=== PATIENT | female | born 1950 | race Caucasian/White ===

== ENCOUNTER → 2018-01-03 | Outpatient (CLI) | payer MEDICARE ==
[~2018-01-03] MED LIST: CEFD300; DIAZ5 PO; FAMO20 PO; HYDHOMSY; MELA3 PO; METO10 PO; PROC25S PR; RANI150 PO; RXPROM25S PR; THYR60
== END | disposition home or self-care (01) ==
LOC: LAB SHORT 17:15 → LAB 17:15
PROVIDERS: Hospitalist
DX: Z12.4 Encounter for screening for malignant neoplasm of cervix (principal)
CPT/HCPCS: G0145

== ENCOUNTER → 2018-01-04 | Outpatient (CLI) | payer MEDICARE ==
[2018-01-10 21:09] LABS: CHLAMYDIA TRACHOMATIS, NAA Negative (Negative); NEISSERIA GONORRHOEAE, NAA Negative (Negative)
== END | disposition home or self-care (01) ==
LOC: LAB SHORT 11:30 → LAB 11:30
PROVIDERS: Hospitalist
DX: Z11.3 Encounter for screening for infections with a predominantly sexual mode of transmission (principal); N89.8 Other specified noninflammatory disorders of vagina
CPT/HCPCS: 87491; 87591

== ENCOUNTER → 2018-10-14 | Outpatient (CLI) | payer MEDICARE ==
[2018-10-14 18:00] LABS: Free Thyroxine 0.77 ng/dL (0.70-1.60)
[2018-10-14 18:05] LABS: Thyroid Stimulating Hormone 0.91 uIU/mL (0.360-4.800); Triiodothyronine, Free 4.74 pg/mL (2.18-3.98)
== END | disposition home or self-care (01) ==
LOC: LAB EV 17:32 → LAB SHORT 17:32
PROVIDERS: Hospitalist
DX: E03.9 Hypothyroidism, unspecified (principal)
CPT/HCPCS: 84439; 84443; 84481

== ENCOUNTER → 2019-01-22 | Outpatient (CLI) | payer MEDICARE ==
[2019-01-22 20:27] LABS: Free Thyroxine 1.31 ng/dL (0.70-1.60)
[2019-01-22 20:29] LABS: Thyroid Stimulating Hormone 1.72 uIU/mL (0.360-4.800); Triiodothyronine, Free 2.71 pg/mL (2.18-3.98)
== END | disposition home or self-care (01) ==
LOC: LAB SHORT 19:16 → LAB 19:16
PROVIDERS: Hospitalist
DX: E03.9 Hypothyroidism, unspecified (principal)
CPT/HCPCS: 84439; 84443; 84481

== ENCOUNTER → 2020-01-19 | Outpatient (CLI) | payer MEDICARE ==
[2020-01-19 15:52] LABS: Free Thyroxine 1.38 ng/dL (0.70-1.60)
[2020-01-19 15:54] LABS: Thyroid Stimulating Hormone 3.28 uIU/mL (0.360-4.800)
== END | disposition home or self-care (01) ==
LOC: LAB 13:40 → LAB SHORT 13:40
PROVIDERS: Hospitalist
DX: E03.9 Hypothyroidism, unspecified (principal)
CPT/HCPCS: 84439; 84443

== ENCOUNTER → 2021-01-18 | Outpatient (CLI) | payer MEDICARE ==
[2021-01-18 15:24] LABS: Alanine Aminotransfer (ALT/SGP 20 U/L (12-78); Albumin, Blood 3.6 g/dL (3.4-5.0); Albumin/Globulin Ratio 0.9 (0.8-1.8); Alk Phos 71 U/L (50-136); Anion Gap 5 mmol/L (6-16); Aspartate Aminotrans (AST/SGOT 14 U/L (12-37); Bilirubin, Total 0.5 mg/dL (0.1-1.0); Blood Urea Nitrogen 13 mg/dL (8-24); CHOL/HDL RATIO 4.2; CO2, Blood 28 mmol/L (21-32); Calcium, Blood 9.4 mg/dL (8.5-10.1); Chloride, Blood 105 mmol/L (98-108); Cholesterol 255 mg/dL (50-200); Creatinine, Blood 0.93 mg/dL (0.40-1.00); Free Thyroxine 1.45 ng/dL (0.70-1.60); Globulin, Blood 3.9 g/dL (2.2-4.0); Glomerular Filtration Rate 60 (60-); Glucose, Blood 86 mg/dL (70-99); HDL Cholesterol 61 mg/dL (>39); LDL/HDL RATIO 2.9; Low Density Lipoprotein Chol 176 mg/dL (0-110); Potassium, Blood 4.2 mmol/L (3.5-5.5); Sodium, Blood 138 mmol/L (136-145); Thyroid Stimulating Hormone 0.945 uIU/mL (0.360-4.800); Total Protein, Blood 7.5 g/dL (6.4-8.2); Triglycerides 88 mg/dL (30-160); Very Low Density Lipoprot Chol 17 mg/dL (6-32)
== END | disposition home or self-care (01) ==
LOC: LAB 09:10 → LAB SHORT 09:10
PROVIDERS: Hospitalist
DX: E03.9 Hypothyroidism, unspecified (principal)
CPT/HCPCS: 80053; 80061; 84439; 84443

== ENCOUNTER → 2023-01-15 | Outpatient (CLI) | payer MEDICARE ==
[2023-01-15 15:50] LABS: BASOPHILS ABSOLUTE AUTO 0.06 K/mm3 (0.00-0.23); BASOPHILS PERCENT AUTO 1 % (0-2); EOSINOPHILS ABSOLUTE AUTO 0.07 K/mm3 (0.00-0.68); EOSINOPHILS PERCENT AUTO 1 % (0-6); IMMATURE GRAN ABSOLUTE AUTO 0.01 K/mm3 (0.00-0.10); IMMATURE GRAN PERCENT AUTO 0 % (0-1); LYMPHOCYTES ABSOLUTE AUTO 2.36 K/mm3 (0.84-5.20); LYMPHOCYTES PERCENT AUTO 42 % (21-46); MONOCYTES ABSOLUTE AUTO 0.29 K/mm3 (0.16-1.47); MONOCYTES PERCENT AUTO 5 % (4-13); Mean Corpuscular HGB 30.7 pg (26.0-34.0); Mean Corpuscular HGB Conc 34.1 g/dL (31.5-36.5); Mean Corpuscular Volume 90 fL (80-100); Mean Platelet Volume 9.5 fL (9.1-12.4); NEUTROPHILS ABSOLUTE AUTO 2.87 K/mm3 (1.96-9.15); NEUTROPHILS PERCENT AUTO 51 % (41-73); Platelet Count 318 K/mm3 (150-400); RDW Coefficient Variation 11.9 % (11.7-14.2); RDW Standard Deviation 39.4 fL (35.1-46.3); Red Blood Cell Count 4.88 M/mm3 (3.80-5.20); White Blood Cell Count 5.66 K/mm3 (4.00-11.30)
[2023-01-15 16:04] LABS: Alanine Aminotransfer (ALT/SGP 18 U/L (12-78); Albumin, Blood 4.1 g/dL (3.4-5.0); Albumin/Globulin Ratio 1.2 (0.8-1.8); Alk Phos 72 U/L (50-136); Anion Gap 4 mmol/L (6-16); Aspartate Aminotrans (AST/SGOT 9 U/L (12-37); Bilirubin, Total 0.7 mg/dL (0.1-1.0); Blood Urea Nitrogen 12 mg/dL (8-24); Bun/Creatinine Ratio 12.7 (12.0-20.0); CO2, Blood 28 mmol/L (21-32); Calcium, Blood 9.6 mg/dL (8.5-10.1); Chloride, Blood 108 mmol/L (98-108); Cholesterol 246 mg/dL (50-200); Creatinine, Blood 0.94 mg/dL (0.40-1.00); Free Thyroxine 1.54 ng/dL (0.70-1.60); Globulin, Blood 3.4 g/dL (2.2-4.0); Glomerular Filtration Rate 64 (60-); Glucose, Blood 102 mg/dL (70-99); HDL Cholesterol 62 mg/dL (>39); LDL/HDL RATIO 2.6; Low Density Lipoprotein Chol 162 mg/dL (0-110); Potassium, Blood 4.4 mmol/L (3.5-5.5); Sodium, Blood 140 mmol/L (136-145); Thyroid Stimulating Hormone 0.643 uIU/mL (0.360-4.800); Total Protein, Blood 7.5 g/dL (6.4-8.2); Triglycerides 108 mg/dL (30-160); Very Low Density Lipoprot Chol 21 mg/dL (6-32)
== END | disposition home or self-care (01) ==
LOC: LAB SHORT 10:40 → LAB 10:40
PROVIDERS: Hospitalist
DX: E03.9 Hypothyroidism, unspecified (principal); E78.00 Pure hypercholesterolemia, unspecified; R06.02 Shortness of breath
CPT/HCPCS: 80053; 80061; 84439; 84443; 85025

== ENCOUNTER → 2023-10-09 | Outpatient (CLI) | payer MEDICARE ==
[2023-10-09 18:55] LABS: BASOPHILS ABSOLUTE AUTO 0.06 K/mm3 (0.00-0.23); BASOPHILS PERCENT AUTO 1 % (0-2); EOSINOPHILS ABSOLUTE AUTO 0.08 K/mm3 (0.00-0.68); EOSINOPHILS PERCENT AUTO 2 % (0-6); Hematocrit 42.2 % (33.0-51.0); Hemoglobin 13.9 g/dL (11.5-16.0); IMMATURE GRAN ABSOLUTE AUTO 0.01 K/mm3 (0.00-0.10); IMMATURE GRAN PERCENT AUTO 0 % (0-1); LYMPHOCYTES ABSOLUTE AUTO 2.61 K/mm3 (0.84-5.20); LYMPHOCYTES PERCENT AUTO 50 % (21-46); MONOCYTES ABSOLUTE AUTO 0.31 K/mm3 (0.16-1.47); MONOCYTES PERCENT AUTO 6 % (4-13); Mean Corpuscular HGB 30.5 pg (26.0-34.0); Mean Corpuscular HGB Conc 32.9 g/dL (31.5-36.5); Mean Corpuscular Volume 93 fL (80-100); Mean Platelet Volume 9.7 fL (9.1-12.4); NEUTROPHILS ABSOLUTE AUTO 2.13 K/mm3 (1.96-9.15); NEUTROPHILS PERCENT AUTO 41 % (41-73); Platelet Count 304 K/mm3 (150-400); RDW Coefficient Variation 11.9 % (11.7-14.2); RDW Standard Deviation 40.2 fL (35.1-46.3); Red Blood Cell Count 4.55 M/mm3 (3.80-5.20)
[2023-10-09 19:44] LABS: Alanine Aminotransfer (ALT/SGP 25 U/L (12-78); Albumin, Blood 4.1 g/dL (3.4-5.0); Albumin/Globulin Ratio 1.2 (0.8-1.8); Alk Phos 64 U/L (50-136); Anion Gap 9 mmol/L (3-11); Aspartate Aminotrans (AST/SGOT 12 U/L (12-37); Bilirubin, Total 1.1 mg/dL (0.1-1.0); Blood Urea Nitrogen 15 mg/dL (8-24); Bun/Creatinine Ratio 13.4 (12.0-20.0); CHOL/HDL RATIO 2.6; CO2, Blood 29 mmol/L (21-32); Calcium, Blood 9.1 mg/dL (8.5-10.1); Chloride, Blood 104 mmol/L (98-108); Cholesterol 176 mg/dL (50-200); Creatinine, Blood 1.12 mg/dL (0.40-1.00); Globulin, Blood 3.3 g/dL (2.2-4.0); Glomerular Filtration Rate 52 (60-); Glucose, Blood 94 mg/dL (70-99); HDL Cholesterol 68 mg/dL (>39); LDL/HDL RATIO 1.4; Low Density Lipoprotein Chol 95 mg/dL (0-110); Potassium, Blood 4.2 mmol/L (3.5-5.5); Sodium, Blood 138 mmol/L (136-145); Total Protein, Blood 7.4 g/dL (6.4-8.2); Triglycerides 66 mg/dL (30-160); Very Low Density Lipoprot Chol 13 mg/dL (6-32)
== END | disposition home or self-care (01) ==
LOC: LAB SHORT 17:28 → LAB 17:28
PROVIDERS: Hospitalist
DX: E78.00 Pure hypercholesterolemia, unspecified (principal); E03.9 Hypothyroidism, unspecified
CPT/HCPCS: 80053; 80061; 84439; 84443; 85025

== ENCOUNTER → 2024-11-17 | Outpatient (CLI) | payer MEDICARE ==
[~2024-11-17] MED LIST changes: +ACET325 PO; +ANORO ELLIPTA1 EAC1 INH; +LEVSOD75 PO; +Mucus Relief400 MG PO; +ONDA4ODT MM
[2024-11-17 19:15] LABS: BASOPHILS ABSOLUTE AUTO 0.04 K/mm3 (0.00-0.23); BASOPHILS PERCENT AUTO 0 % (0-2); EOSINOPHILS ABSOLUTE AUTO 0.00 K/mm3 (0.00-0.68); EOSINOPHILS PERCENT AUTO 0 % (0-6); Hematocrit 37.3 % (33.0-51.0); Hemoglobin 12.7 g/dL (11.5-16.0); IMMATURE GRAN ABSOLUTE AUTO 0.30 K/mm3 (0.00-0.10); IMMATURE GRAN PERCENT AUTO 3 % (0-1); LYMPHOCYTES ABSOLUTE AUTO 0.67 K/mm3 (0.84-5.20); LYMPHOCYTES PERCENT AUTO 7 % (21-46); MONOCYTES ABSOLUTE AUTO 0.18 K/mm3 (0.16-1.47); MONOCYTES PERCENT AUTO 2 % (4-13); Mean Corpuscular HGB Conc 34.0 g/dL (31.5-36.5); Mean Corpuscular Volume 91 fL (80-100); NEUTROPHILS ABSOLUTE AUTO 8.94 K/mm3 (1.96-9.15); NEUTROPHILS PERCENT AUTO 88 % (41-73); NRBC ABSOLUTE 0.00 K/mm3 (0.00-0.02); NRBC Auto 0.0 /100 WBC (0.0-0.2); Platelet Count 563 K/mm3 (150-400); RDW Coefficient Variation 12.0 % (11.7-14.2); RDW Standard Deviation 39.6 fL (35.1-46.3)
[2024-11-17 19:32] LABS: Alanine Aminotransfer (ALT/SGP 25.0 U/L (12-78); Albumin, Blood 3.1 g/dL (3.4-5.0); Albumin/Globulin Ratio 0.9 (0.8-1.8); Anion Gap 11.0 mmol/L (3-11); Aspartate Aminotrans (AST/SGOT 15.0 U/L (12-37); Bilirubin, Total 0.9 mg/dL (0.1-1.0); Blood Urea Nitrogen 18.0 mg/dL (8-24); CO2, Blood 26.0 mmol/L (21-32); Calcium, Blood 9.3 mg/dL (8.5-10.1); Chloride, Blood 99.0 mmol/L (98-108); Creatinine, Blood 1.0 mg/dL (0.40-1.00); Globulin, Blood 3.5 g/dL (2.2-4.0); Glucose, Blood 230.0 mg/dL (70-99); Potassium, Blood 4.4 mmol/L (3.5-5.5); Sodium, Blood 132.0 mmol/L (136-145); Total Protein, Blood 6.6 g/dL (6.4-8.2)
== END ==
LOC: LAB 18:17 → LAB SHORT 18:17
PROVIDERS: Hospitalist
DX: J18.9 Pneumonia, unspecified organism (principal); R73.9 Hyperglycemia, unspecified
CPT/HCPCS: 80053; 83036; 85025

== ENCOUNTER 2024-11-19 14:17 | Inpatient (IN) | payer MEDICARE ==
[~2024-11-19] VITALS: Ht 162.6 cm; Wt 56.7 kg
[~2024-11-19 14:17] MED LIST changes: -ACET325 PO; -ANORO ELLIPTA1 EAC1 INH; -LEVSOD75 PO; -Mucus Relief400 MG PO; -ONDA4ODT MM
[2024-11-19 15:00] LABS: BASOPHILS ABSOLUTE AUTO 0.04 K/mm3 (0.00-0.23); BASOPHILS PERCENT AUTO 1 % (0-2); EOSINOPHILS ABSOLUTE AUTO 0.00 K/mm3 (0.00-0.68); EOSINOPHILS PERCENT AUTO 0 % (0-6); Hematocrit 38.5 % (33.0-51.0); Hemoglobin 13.2 g/dL (11.5-16.0); IMMATURE GRAN ABSOLUTE AUTO 0.28 K/mm3 (0.00-0.10); IMMATURE GRAN PERCENT AUTO 3 % (0-1); LYMPHOCYTES ABSOLUTE AUTO 0.92 K/mm3 (0.84-5.20); LYMPHOCYTES PERCENT AUTO 11 % (21-46); MONOCYTES ABSOLUTE AUTO 0.15 K/mm3 (0.16-1.47); MONOCYTES PERCENT AUTO 2 % (4-13); Mean Corpuscular HGB Conc 34.3 g/dL (31.5-36.5); Mean Corpuscular Volume 89 fL (80-100); NEUTROPHILS ABSOLUTE AUTO 7.17 K/mm3 (1.96-9.15); NEUTROPHILS PERCENT AUTO 84 % (41-73); NRBC ABSOLUTE 0.00 K/mm3 (0.00-0.02); NRBC Auto 0.0 /100 WBC (0.0-0.2); Platelet Count 567 K/mm3 (150-400); RDW Coefficient Variation 12.0 % (11.7-14.2); RDW Standard Deviation 39.4 fL (35.1-46.3)
[2024-11-19 15:39] LABS: Magnesium, Blood 2.6 mg/dL (1.6-2.4)
[2024-11-19 15:40] LABS: Alanine Aminotransfer (ALT/SGP 24.0 U/L (12-78); Albumin, Blood 3.2 g/dL (3.4-5.0); Albumin/Globulin Ratio 0.8 (0.8-1.8); Anion Gap 6.0 mmol/L (3-11); Aspartate Aminotrans (AST/SGOT 16.0 U/L (12-37); Bilirubin, Total 1.0 mg/dL (0.1-1.0); Blood Urea Nitrogen 13.0 mg/dL (8-24); CO2, Blood 24.0 mmol/L (21-32); Calcium, Blood 9.1 mg/dL (8.5-10.1); Chloride, Blood 102.0 mmol/L (98-108); Creatinine, Blood 0.93 mg/dL (0.40-1.00); Globulin, Blood 4.1 g/dL (2.2-4.0); Glucose, Blood 171.0 mg/dL (70-99); Potassium, Blood 3.9 mmol/L (3.5-5.5); Sodium, Blood 128.0 mmol/L (136-145); Total Protein, Blood 7.3 g/dL (6.4-8.2)
[2024-11-19] MEDS ORDERED: NS 1,000 ML IV SCH ×2 (15:45→18:25)
[2024-11-19 16:44] LABS: Thyroid Stimulating Hormone 1.19 uIU/mL (0.360-4.800)
[2024-11-19 16:51] LABS: Source, Urine Clean Catch
[2024-11-19 17:00] LABS: Bilirubin, Urine Neg (Neg); Glucose Qualitative, Urine Neg (Neg); Ketones, Urine Neg (Neg); Leukocyte Esterase, Urine Neg (Neg); Protein, Urine Neg (Neg); Specific Gravity, Urine 1.005 (1.003-1.022); Urobilinogen, Urine NORM (Normal)
[2024-11-19 17:05] LABS: Color, Urine Pale Yellow (P-Yellow)
[2024-11-19 17:16] LABS: U Amphetamine Screen Not Detected; U Barbituate Screen Not Detected; U Benzodiazapine Screen Not Detected; U Buprenorphine Screen Not Detected; U Cannabinoids Screen Not Detected; U Cocaine Screen Not Detected; U Methadone Screen Not Detected; U Methamphetamine Screen Not Detected; U Opiates Screen Not Detected; U Oxycodone Screen Not Detected; U Phencyclidine Screen Not Detected
[2024-11-19] MEDS ORDERED: LORazepam 2 MG/ML 1ML Injection IV ONE (17:20)
[2024-11-19] MEDS ORDERED: Diazepam 5 MG / ML 2ML SYR IV ONE (17:25)
[2024-11-19] MEDS ORDERED: Ondansetron HCl 2 MG / ML 2ML Vial IV PRN (18:25)
[2024-11-19] MEDS ORDERED: Diazepam 5 MG / ML 2ML SYR IV PRN (18:50)
[2024-11-19] MEDS ORDERED: Ipratropium/Albuterol SulF 2.5-0.5MG/3 ML Amp INH SCH (19:00)
[2024-11-19] MEDS ORDERED: Metoclopramide HCl 5MG / ML 2ML Vial IV ONE (20:00)
[2024-11-19 20:37] LABS: Anion Gap 5.0 mmol/L (3-11); Blood Urea Nitrogen 10.0 mg/dL (8-24); CO2, Blood 26.0 mmol/L (21-32); Calcium, Blood 8.4 mg/dL (8.5-10.1); Chloride, Blood 109.0 mmol/L (98-108); Creatinine, Blood 0.79 mg/dL (0.40-1.00); Glucose, Blood 160.0 mg/dL (70-99); Potassium, Blood 4.3 mmol/L (3.5-5.5); Sodium, Blood 136.0 mmol/L (136-145)
[2024-11-19 22:29] VITALS: BP 145/84
[2024-11-19] MEDS ORDERED: ANORO ELLIPTA1 EAC1 INH ×2 (22:54)
[2024-11-19] MEDS ORDERED: LEVSOD75 PO ×2 (22:55)
[2024-11-19] MEDS ORDERED: ONDA4ODT MM ×2 (22:56)
[2024-11-20 04:24] VITALS: BP 136/77
[2024-11-20 04:57] VITALS: BP 165/88
[2024-11-20 05:52] LABS: Anion Gap 9.0 mmol/L (3-11); Blood Urea Nitrogen 12.0 mg/dL (8-24); CO2, Blood 26.0 mmol/L (21-32); Calcium, Blood 8.1 mg/dL (8.5-10.1); Chloride, Blood 107.0 mmol/L (98-108); Creatinine, Blood 0.8 mg/dL (0.40-1.00); Glucose, Blood 82.0 mg/dL (70-99); Potassium, Blood 4.0 mmol/L (3.5-5.5); Sodium, Blood 138.0 mmol/L (136-145)
[2024-11-20 06:00] VITALS: BP 165/84
[2024-11-20] MEDS ORDERED: Insulin Regular 100 UNIT/ML 10ML Vial SC SCH (07:30)
[2024-11-20 07:48] VITALS: BP 156/85
--- NOTE | 2024-11-20 07:54 | NUR ---
SHIFT SUMMARY A&OX2-3. INTERMITTENT CONFUSION. SOME DELUSIONS THROUGHOUT SHIFT BUT PT ABLE TO BE REDIRECTED. PT DID BECOME VERY ANXIOUS DURING THE NIGHT AND VALIUM WAS GIVEN PER EMAR. PT ALSO ENDED UP WITH A HEADACHE AND NEW ORDERS RECEIVED FOR TYLENOL. TYLENOL GIVEN BUT SWALLOWING WAS VERY DIFFICULT FOR PT. DUE TO CONFUSION IT WAS DIFFICULT FOR PT TO USE CALL LIGHT APPROPRIATELY. BED ALARM PRESENT. PT LUNGS SOUNDED COARSE, DIMINISHED AND WITH EXPIRATORY WHEEZES. CURRENTLY ON RA AND DENIES ANY SOB AT REST BUT DOES GET SOB WITH EXCERTION. PT CURRENTLY RESTING IN HOSPITAL BED IN LOWEST POSITION WITH RAILS X2 AND CALL LIGHT WITHIN REACH.
[2024-11-20] MEDS ORDERED: Enoxaparin 40 MG/0.4 ML SYR SC SCH (09:00)
[2024-11-20 13:44] LABS: Anion Gap 7.0 mmol/L (3-11); Blood Urea Nitrogen 11.0 mg/dL (8-24); CO2, Blood 28.0 mmol/L (21-32); Calcium, Blood 8.9 mg/dL (8.5-10.1); Chloride, Blood 104.0 mmol/L (98-108); Creatinine, Blood 0.8 mg/dL (0.40-1.00); Glucose, Blood 136.0 mg/dL (70-99); Potassium, Blood 3.5 mmol/L (3.5-5.5); Sodium, Blood 135.0 mmol/L (136-145)
[2024-11-20] MEDS ORDERED: Albuterol 2.5 MG/3 ML VIAL INH PRN (16:30)
--- NOTE | 2024-11-20 18:07 | NUR ---
SHIFT SUMMARY: PATIENT A+O X3 WITH MENTATION FLUCTUATION. VALIUM NOTED TO HAVE GREAT AFFECT ON PATIENTS MENTATION AND TREMORS. PATIENTS FAMILY AT BEDSIDE. MRI SCHEDULED PER DR. GARCIA. PAPERWORK FILLED OUT AND FAXED TO MRI. AWAITING RESULTS. PATIENT REMAINS SBA c FWW AND GB TO BSC. LUNGS DIMINISHED AND COARSE WITH CRACKLES IN BASES. S1 S2 HEARD UPON ASCULTATION. CONTINUOUS NS RUNNING AT 100ML/HR, IV PATENT. PLAN OF CARE ONGOING AT THIS TIME. WILL CONTINUE TO MONITOR.
[2024-11-20 19:26] VITALS: BP 162/92
[2024-11-21 02:29] VITALS: BP 130/72
[2024-11-21 04:44] LABS: Hematocrit 35.6 % (33.0-51.0); Hemoglobin 11.7 g/dL (11.5-16.0); Mean Corpuscular HGB Conc 32.9 g/dL (31.5-36.5); Mean Corpuscular Volume 92 fL (80-100); NRBC ABSOLUTE 0.00 K/mm3 (0.00-0.02); NRBC Auto 0.0 /100 WBC (0.0-0.2); Platelet Count 433 K/mm3 (150-400); RDW Coefficient Variation 12.3 % (11.7-14.2); RDW Standard Deviation 40.4 fL (35.1-46.3)
[2024-11-21 05:14] LABS: Alanine Aminotransfer (ALT/SGP 17.0 U/L (12-78); Albumin, Blood 2.2 g/dL (3.4-5.0); Albumin/Globulin Ratio 0.6 (0.8-1.8); Anion Gap 6.0 mmol/L (3-11); Aspartate Aminotrans (AST/SGOT 11.0 U/L (12-37); Bilirubin, Total 0.7 mg/dL (0.1-1.0); Blood Urea Nitrogen 8.0 mg/dL (8-24); CO2, Blood 27.0 mmol/L (21-32); Calcium, Blood 8.3 mg/dL (8.5-10.1); Chloride, Blood 111.0 mmol/L (98-108); Creatinine, Blood 0.93 mg/dL (0.40-1.00); Globulin, Blood 3.4 g/dL (2.2-4.0); Glucose, Blood 82.0 mg/dL (70-99); Potassium, Blood 4.3 mmol/L (3.5-5.5); Sodium, Blood 140.0 mmol/L (136-145); Total Protein, Blood 5.6 g/dL (6.4-8.2)
[2024-11-21 05:24] LABS: BASOPHILS ABSOLUTE MAN 0.00 K/mm3 (0.00-0.23); BASOPHILS PERCENT MAN 0 % (0-2); EOSINOPHILS ABSOLUTE MAN 0.00 K/mm3 (0.00-0.68); EOSINOPHILS PERCENT MAN 0 % (0-6); LYMPHOCYTES % ATYPICAL MANUAL 1 % (0-0); LYMPHOCYTES ABSOLUTE MAN 1.93 K/mm3 (0.84-5.20); LYMPHOCYTES PERCENT MAN 40 % (21-46); MONOCYTES ABSOLUTE MAN 0.42 K/mm3 (0.16-1.47); MONOCYTES PERCENT MAN 9 % (4-13); NEUTROPHILS ABSOLUTE MAN 2.36 K/mm3 (1.96-9.15); SEG NEUTROPHILS PERCENT MAN 50 % (41-73)
--- NOTE | 2024-11-21 05:52 | NUR ---
SHIFT SUMMARY ADMITTED FOR CONFUSION/DELUSIONS. FULL CODE. SHE HAD BEEN ON STEROIDS FOR COPD/PNEUMONIA, THOSE HAVE BEEN STOPPED. IV FLUID IS INFUSING. SHE IS ON RA. PT AND ST THERAPIES ORDERED. SOFT BITE SIZE DIET, SUPERVISED. SHE IS A STANDBY ASSIST- BRP. CBG'S BEFORE MEALS. SHE IS IMPULSIVE. A&O TO SELF & FAMILY. SHE MADE PARANOID STATEMENTS THIS SHIFT. THERE ARE REPORTS OF HALLUCINATIONS/DELUSIONS. SHE IS ANXIOUS AT TIMES. I SEE THERE IS A PSYCH CONSULT ORDERED, BUT I AM UNCERTAIN IF IT WAS CALLED IN THERE ARE NO NOTES . I WILL PASS THIS ONTO THE DAY RN TO VERIFY THAT THE CONSULT HAS BEEN CALLED.
[2024-11-21 07:39] VITALS: BP 163/76
--- NOTE | 2024-11-21 14:00 | NUR ---
FAMILY IN PATIENT ROOM REQUESTED TO SPEAK WITH THE DOCTOR. CALL MADE TO DR. MATTHEWS AND NOTIFIED THAT FAMILY WAS IN THE ROOM AND WISHES TO SEE HER. FAMILY ALSO INQUIRED ABOUT PSYCH SEEING THE PATIENT AND I DID LET THEM KNOW THAT THE PATIENT WAS EVALUATED THIS TODAY AND PER DR. RAHMAN PATIENT IS CLEARED AND DOES NOT NEED TO BE SEEN BY PSYCH. PER DR. RAHMAN " PATIENT DOES NOT HAVE SCHIZOPHRENIA AND THAT THIS ISN'T SOMETHING THAT DEVELOPS AT 74 YEARS OLD." HE FEELS THAT THIS IS A MEDICAL ISSUES AND NEEDS TO BE FOLLOWED UP BY THE HOSPITALIST/NEURO. I DID RELAY THIS TO THE FAMILY AND THEY FEEL THAT THERE IS STILL SOME MENTAL HEALTH ISSUES AND WOULD LIKE TO SPEAK WITH DR. RAHMAN AND EXPRESS CONCERNS AND HISTORY WITH THE PATIENT. CALL MADE TO DR. RAHMAN AND HE REITERATED WHAT HE SAID BEFORE AND THAT HE DID NOT HAVE TIME TO SEE THEM. FAMILY NOTIFIED.
[2024-11-21 16:06] VITALS: BP 135/88
--- NOTE | 2024-11-21 17:05 | NUR ---
SHIFT SUMMARY: PATIENT HAS OVERALL HAD A GOOD DAY. SHE STARTED OUT RESISTANT AND REFUSING OF SOME CARE, BUT THROUGHOUT THE DAY SHE CAME MORE COOPERATIVE. SHE HAS BEEN EATING AND DRINKING. SHE HAS BEEN AMBULATING OFTEN AND WAS AMBULATING AROUND THE UNIT WITH A FRIEND TODAY. FAMILY CAME IN AND VISITED AND SPOKE WITH THE DOCTOR. PATIENT IS CURRENTLY ALONE IN HER ROOM, SHE DID TAKE A LONG NAP AFTER HER VISITORS LEFT. SHE IS AWAKE NOW, SITTING AT THE EDGE OF THE BED, CALLING APPROPRIATELY, AND IS REQUESTING TO TAKE A SHOWER. COG. EVAL COMPLETED TODAY ALONG WITH PSCH. PATIENT GETTING PREPARED FOR SHOWER BY INFECTIOUS DISEASES PHYSICIAN STUDENT, NO SIGNS OR SYMPTOMS OF DISTRESS, PLAN OF CARE ONGOING.
[2024-11-21 19:17] VITALS: BP 120/77
[2024-11-21] MEDS ORDERED: Lactobacil 2-S.Thermo-Bifido 1 1 Cap PO SCH (21:00)
[2024-11-22 03:31] VITALS: BP 138/77
--- NOTE | 2024-11-22 04:55 | NUR ---
SCRAP PILER SUMMARY PT A&OX2 (SELF, PLACE), VSS, EXCEPT ELEVATED BP. PT HAS MOSTLY BEEN COMPLIANT WITH MEDICATION, CARE, AND ASSESSMENTS. HOWEVER, PT REMAINS CONFUSED AND ANXIOUS. PT STATED, "YOU GUYS ARE PUMPING MY BODY FULL OF STUFF IT DOESN'T NEED" AND "I HAVE ALREADY TAKEN ALL MY MEDICATION. I SHOULDN'T HAVE MORE." PT EDUCATED ON MEDICATION REGIMEN WELL NEED FOR NS IV INFUSION AND EVENTUALLY AGREED TO CARE. PT HAS BEEN ASLEEP FOR THE MAJORITY OF THE SHIFT. CHEST RISE/RESPIRATIONS NOTED. PT UP W/ ASSIST TO USE RESTROOM AT TIMES. BED ALARM REMAINS ON FOR SAFETY D/T CONFUSION. BED RAILS UP X 2, BED IN LOWEST POSITION, BED WHEELS LOCKED, PERSONAL BELONGINGS AND CALL LIGHT WITHIN REACH FOR SAFETY.
[2024-11-22 05:00] LABS: Hematocrit 37.2 % (33.0-51.0); Hemoglobin 12.5 g/dL (11.5-16.0); Mean Corpuscular HGB Conc 33.6 g/dL (31.5-36.5); Mean Corpuscular Volume 92 fL (80-100); NRBC ABSOLUTE 0.00 K/mm3 (0.00-0.02); NRBC Auto 0.0 /100 WBC (0.0-0.2); Platelet Count 453 K/mm3 (150-400); RDW Coefficient Variation 12.2 % (11.7-14.2); RDW Standard Deviation 40.3 fL (35.1-46.3)
[2024-11-22 05:20] LABS: BASOPHILS ABSOLUTE MAN 0.00 K/mm3 (0.00-0.23); BASOPHILS PERCENT MAN 0 % (0-2); EOSINOPHILS ABSOLUTE MAN 0.39 K/mm3 (0.00-0.68); EOSINOPHILS PERCENT MAN 6 % (0-6); LYMPHOCYTES % ATYPICAL MANUAL 1 % (0-0); LYMPHOCYTES ABSOLUTE MAN 2.65 K/mm3 (0.84-5.20); LYMPHOCYTES PERCENT MAN 39 % (21-46); MONOCYTES ABSOLUTE MAN 0.19 K/mm3 (0.16-1.47); MONOCYTES PERCENT MAN 3 % (4-13); NEUTROPHILS ABSOLUTE MAN 3.38 K/mm3 (1.96-9.15); SEG NEUTROPHILS PERCENT MAN 51 % (41-73)
[2024-11-22 05:24] LABS: Alanine Aminotransfer (ALT/SGP 19.0 U/L (12-78); Albumin, Blood 2.6 g/dL (3.4-5.0); Albumin/Globulin Ratio 0.7 (0.8-1.8); Anion Gap 8.0 mmol/L (3-11); Aspartate Aminotrans (AST/SGOT 12.0 U/L (12-37); Bilirubin, Total 0.8 mg/dL (0.1-1.0); Blood Urea Nitrogen 14.0 mg/dL (8-24); CO2, Blood 24.0 mmol/L (21-32); Calcium, Blood 8.2 mg/dL (8.5-10.1); Chloride, Blood 111.0 mmol/L (98-108); Creatinine, Blood 0.96 mg/dL (0.40-1.00); Globulin, Blood 3.6 g/dL (2.2-4.0); Glucose, Blood 86.0 mg/dL (70-99); Potassium, Blood 4.0 mmol/L (3.5-5.5); Sodium, Blood 139.0 mmol/L (136-145); Total Protein, Blood 6.2 g/dL (6.4-8.2)
[2024-11-22 07:51] VITALS: BP 152/88
--- NOTE | 2024-11-22 17:40 | NUR ---
SHIFT SUMMARY PATIENT AMBULATORY IN ROOM AND IN HALLWAY WITH FAMILY. DAUGHTER VOICING CONCERNS REGARDING PYSCH NOTE ON PATIENT PORTAL, STATES LONG FAMILY HISTORY OF SCHIZOPHRENIA AND OTHER MENTAL HEALTH DIAGNOSIS, CONCERNS PASSED TO ROUNDING DOC WHO SAW FAMILY IN ROOM. PATIENT DISPLAYING CONFUSION ABOUT HOSPITALIZATION, ALTHOUGH SHE CONSISTENTLY KNOWS WHERE SHE IS. DENIES HEARING VOICES. 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 ACCEPTED ALL MEDS OFFERED BY THIS RN, REQUIRED PATIENCE AND NEEDED TO BE REAPPROACHED X2. NEEDS VERBAL ENCOURAGEMENT FOR ADLS BUT IS ABLE TO PERFORM PHYSICALLY INDEPENDENTLY. CALL LIGHT IN REACH WHILE IN ROOM. IS SOMETIMES ABLE TO MAKE NEEDS KNOWN.
[2024-11-22 19:32] VITALS: BP 126/84
--- NOTE | 2024-11-23 03:08 | NUR ---
CONTRACT TECHNICAL WRITER SUMMARY: PT A&O X2 (SELF / PLACE). PT RESTING IN BED. NO ACUTE EVENTS T/O SHIFT. NO AGITATION OR HALLUCINATIONS. PT INDEPENDENT IN ROOM. PT HAS MADE NEEDS KNOWN T/O SHIFT. BED IN LOWEST POSITION. CALL LIGHT IN REACH.
[2024-11-23 06:00] LABS: Hematocrit 40.1 % (33.0-51.0); Hemoglobin 13.5 g/dL (11.5-16.0); Mean Corpuscular HGB Conc 33.7 g/dL (31.5-36.5); Mean Corpuscular Volume 92 fL (80-100); NRBC ABSOLUTE 0.00 K/mm3 (0.00-0.02); NRBC Auto 0.0 /100 WBC (0.0-0.2); Platelet Count 425 K/mm3 (150-400); RDW Coefficient Variation 12.2 % (11.7-14.2); RDW Standard Deviation 40.6 fL (35.1-46.3)
[2024-11-23 06:22] LABS: Anion Gap 4.0 mmol/L (3-11); Blood Urea Nitrogen 15.0 mg/dL (8-24); CO2, Blood 26.0 mmol/L (21-32); Calcium, Blood 8.7 mg/dL (8.5-10.1); Chloride, Blood 111.0 mmol/L (98-108); Creatinine, Blood 0.95 mg/dL (0.40-1.00); Glucose, Blood 87.0 mg/dL (70-99); Potassium, Blood 4.0 mmol/L (3.5-5.5); Sodium, Blood 137.0 mmol/L (136-145)
[2024-11-23 07:51] VITALS: BP 128/88
--- NOTE | 2024-11-23 09:33 | NUR ---
CONTACTED DR GLOVER (PSYCH), GAVE HIM AYAN'S (DAUGHTER) PHONE NUMBER AND LET FAMILY KNOW HE WOULD BE CONTACTING THEM HE HAD ATTEMPTED TO SPEAK TO THEM TWICE WITHOUT CONNECTING.
--- NOTE | 2024-11-23 13:11 | NUR ---
SHIFT SUMMARY PATIENT ABLE TO AMBULATE IN HALLS AND IN ROOM. FAMILY IN TO VISIT. PATIENT AFFECT AND MOOD REMAIN CONSISTENT WITH PREVIOUS DAY. ACCEPTING OF MEDICATIONS BUT REQUIRES GENTLY ENCOURAGEMENT AND SEVERAL EXPLANATIONS OF WHAT THE MEDS ARE FOR. A/O X4. REPORTS NO HALLUCINATIONS. CALL LIGHT IN REACH, WILL MAKE NEEDS KNOWN IF STAFF ROUNDING, HAS NOT USED CALL LIGHT.
[2024-11-23 14:50] VITALS: BP 122/86
[2024-11-23 19:20] VITALS: BP 99/66
[2024-11-24 03:21] VITALS: BP 136/92
--- NOTE | 2024-11-24 04:19 | NUR ---
BOTTLING EQUIPMENT SALES REPRESENTATIVE SUMMARY: PT A&0 X2. NO ACUTE EVENTS T/O SHIFT. FALL PRECAUTIONS IN PLACE. INDEPENDENT IN ROOM WITH CARES. CARES ONGOING ORDERED.
[2024-11-24 05:07] LABS: BASOPHILS ABSOLUTE AUTO 0.06 K/mm3 (0.00-0.23); BASOPHILS PERCENT AUTO 1 % (0-2); EOSINOPHILS ABSOLUTE AUTO 0.19 K/mm3 (0.00-0.68); EOSINOPHILS PERCENT AUTO 2 % (0-6); Hematocrit 42.7 % (33.0-51.0); Hemoglobin 14.2 g/dL (11.5-16.0); IMMATURE GRAN ABSOLUTE AUTO 0.10 K/mm3 (0.00-0.10); IMMATURE GRAN PERCENT AUTO 1 % (0-1); LYMPHOCYTES ABSOLUTE AUTO 3.17 K/mm3 (0.84-5.20); LYMPHOCYTES PERCENT AUTO 40 % (21-46); MONOCYTES ABSOLUTE AUTO 0.45 K/mm3 (0.16-1.47); MONOCYTES PERCENT AUTO 6 % (4-13); Mean Corpuscular HGB Conc 33.3 g/dL (31.5-36.5); Mean Corpuscular Volume 92 fL (80-100); NEUTROPHILS ABSOLUTE AUTO 3.99 K/mm3 (1.96-9.15); NEUTROPHILS PERCENT AUTO 50 % (41-73); NRBC ABSOLUTE 0.00 K/mm3 (0.00-0.02); NRBC Auto 0.0 /100 WBC (0.0-0.2); Platelet Count 431 K/mm3 (150-400); RDW Coefficient Variation 12.4 % (11.7-14.2); RDW Standard Deviation 41.1 fL (35.1-46.3)
[2024-11-24 05:29] LABS: Alanine Aminotransfer (ALT/SGP 24.0 U/L (12-78); Albumin, Blood 3.0 g/dL (3.4-5.0); Albumin/Globulin Ratio 0.7 (0.8-1.8); Anion Gap 7.0 mmol/L (3-11); Aspartate Aminotrans (AST/SGOT 16.0 U/L (12-37); Bilirubin, Total 0.9 mg/dL (0.1-1.0); Blood Urea Nitrogen 16.0 mg/dL (8-24); CO2, Blood 27.0 mmol/L (21-32); Calcium, Blood 8.6 mg/dL (8.5-10.1); Chloride, Blood 108.0 mmol/L (98-108); Creatinine, Blood 1.01 mg/dL (0.40-1.00); Globulin, Blood 4.1 g/dL (2.2-4.0); Glucose, Blood 97.0 mg/dL (70-99); Potassium, Blood 4.2 mmol/L (3.5-5.5); Sodium, Blood 138.0 mmol/L (136-145); Total Protein, Blood 7.1 g/dL (6.4-8.2)
[2024-11-24 07:27] VITALS: BP 130/91
[2024-11-24] MEDS ORDERED: Ipratropium/Albuterol SulF 2.5-0.5MG/3 ML Amp INH SCH (09:00)
[2024-11-24] MEDS ORDERED: Polyethylene Glycol 3350 17 gm PO PRN (09:00)
[2024-11-24] MEDS ORDERED: Docusate Sodium/Senna 1 Tab PO PRN (09:00)
[2024-11-24] MEDS ORDERED: GuaiFENesin 100 MG/5 ML 5ML UDC PO PRN (09:50)
[2024-11-24] MEDS ORDERED: Ipratropium/Albuterol SulF 2.5-0.5MG/3 ML Amp INH PRN (12:15)
[2024-11-24 16:39] VITALS: BP 117/80
--- NOTE | 2024-11-24 18:31 | NUR ---
SHIFT SUMMARY PT AOX3/4, COOPERATIVE, ABLE TO MAKE NEEDS KNOWN. PT IS IND IN ROOM. BED ALARM ACTIVE FOR EVENING CARE. TOLERATING MEDICATION. SUPPOSED TO GO HOME ON HOME HEALTH NEXT DAY OR 2. BED IN LOWEST PSOITION, CALL LIGHT WITHIN REACH.
[2024-11-24 19:57] VITALS: BP 136/89
--- NOTE | 2024-11-25 02:59 | NUR ---
CLARK DRIVER SUMMARY: NO ACUTE EVENTS T/O SHIFT. INDEPENDENT IN ROOM. ANTICIPATED D/C 11/25/24 WITH [facility]. CALL LIGHT IN REACH. FALL PRECAUTIONS IN PLACE. CARES ONGOING ORDERED.
[2024-11-25 05:14] VITALS: BP 125/79
[2024-11-25 07:25] VITALS: BP 104/62
[2024-11-25] MEDS ORDERED: ACET325 PO ×2 (12:49)
[2024-11-25] MEDS ORDERED: Mucus Relief400 MG PO ×2 (12:51)
--- NOTE | 2024-11-25 15:01 | NUR ---
PT DISCHARGED THE PT WAS GIVEN DC INSTRUCTIONS BY HER PRIMARY RN. A HARD COPY PRESCRIPTION FOR VALIUM WAS GIVEN TO THE PT AND HER FAMILY FROM ONE OF THE RESIDENT DOCTORS OVER HER CARE. THE PT WAS TRANSFERED VIA WHEELCHAIR ACCOMPANIED BY HER FAMILY
--- NOTE | 2024-11-25 15:49 | NUR ---
DISCHARGE PT AOX3/4, COOPERATIVE, ABLE TO MAKE NEEDS KNOWN. PT IS IND IN ROOM, ON ROOM AIR. TOLERATING MEDICATIONS AND PO INTAKE. NO COMPLAINTS OF COUGH THIS SHIFT. FAMILY CAME TO TRANSPORT PT. THIS RN WENT OVER DC PAPERWORK WITH FAMILY. FAMILY REQUESTED SCRIPT FOR VALIUM, CALLED MD DAVIE APPROVED LIMITED AMOUNT. PT WAITING FOR SCRIPT FOR DC. THIS RN WENT TO LUNCH, INFORMED BREAK RN OF SCRIPT. WHEN THIS RN CAME BACK FROM LUNCH, BREAK RN INFORMED THIS RN THAT BEFORE HE COULD CALL MD, PT HAD ALREADY LEFT WITH SCRIPT. THIS RN IS UNSURE IF COPY OF HARD SCRIPT WAS MADE BEFORE PT LEFT. IV DC'D WITHOUT COMPLICATION.
== END 2024-11-25 14:58 | disposition home health service (06) | DRG 56 ==
LOC: ER 14:17 → MEDS 14:18
PROVIDERS: Nurse Practitioner Acute Care; Physician Assistant; ADMIT Student in an Organized Health Care Education/Training Program
DX: G31.83 Neurocognitive disorder with Lewy bodies (principal); G92.8 Other toxic encephalopathy; G93.41 Metabolic encephalopathy; J18.9 Pneumonia, unspecified organism; F02.82 Dementia in other diseases classified elsewhere, unspecified severity, with psychotic disturbance; F01.52 Vascular dementia, unspecified severity, with psychotic disturbance; F02.84 Dementia in other diseases classified elsewhere, unspecified severity, with anxiety; F01.54 Vascular dementia, unspecified severity, with anxiety; J44.0 Chronic obstructive pulmonary disease with (acute) lower respiratory infection; E87.1 Hypo-osmolality and hyponatremia; F02.811 Dementia in other diseases classified elsewhere, unspecified severity, with agitation; F01.511 Vascular dementia, unspecified severity, with agitation; F20.9 Schizophrenia, unspecified; D75.838 Other thrombocytosis; R79.89 Other specified abnormal findings of blood chemistry; E03.9 Hypothyroidism, unspecified; Z79.890 Hormone replacement therapy; Z79.52 Long term (current) use of systemic steroids; Z88.5 Allergy status to narcotic agent; Z87.891 Personal history of nicotine dependence
CPT/HCPCS: 36415; 70450; 70551; 71046; 80048; 80053; 80320; 81003; 82140; 82607; 82746; 82947; 83605; 83735; 84439; 84443; 85025; 85027; 92526; 92610; 94640; 94664; 94760; 96361; 96372; 96374; 96376; 97112; 97129; 97130; 97161; 97165; 97530; 97535; 99285-25; A9270; G0378; J1650; J3360; J7030